=== PATIENT | female | born 1955 ===

== ENCOUNTER 2017-07-16 09:41 | Outpatient (CLI) | payer OTHER | END 2017-07-16 10:27 | disposition home or self-care (01) | LOC: MAMO-SONO 09:41 | DX: N64.4 Mastodynia (principal); N60.39 Fibrosclerosis of unspecified breast; N60.29 Fibroadenosis of unspecified breast; Z12.31 Encounter for screening mammogram for malignant neoplasm of breast ==

== ENCOUNTER 2019-07-22 10:39 | Emergency (ER) | payer OTHER ==
[~2019-07-22] VITALS: Ht 162.6 cm; Wt 49.9 kg
[2019-07-22] MEDS ORDERED: D3 + K2 DOTS 11 EACH PO (10:56)
[2019-07-22] MEDS ORDERED: MULTIPLE VITAM1 EACH PO (10:56)
== END 2019-07-22 13:23 | disposition home or self-care (01) ==
LOC: ER 10:39
DX: R42 Dizziness and giddiness (principal)

== ENCOUNTER 2021-06-20 14:21 | Outpatient (CLI) | payer OTHER ==
[~2021-06-20 14:21] MED LIST: D3 + K2 DOTS 11 EACH PO; MULTIPLE VITAM1 EACH PO
== END 2021-06-20 14:51 | disposition home or self-care (01) ==
LOC: MAMO-SONO 14:21
PROVIDERS: ATTEND Family Medicine Geriatric Medicine
DX: N60.12 Diffuse cystic mastopathy of left breast (principal); N60.11 Diffuse cystic mastopathy of right breast; N64.4 Mastodynia; N60.39 Fibrosclerosis of unspecified breast; N60.29 Fibroadenosis of unspecified breast; N63.0 Unspecified lump in unspecified breast; Z12.11 Encounter for screening for malignant neoplasm of colon

== ENCOUNTER 2021-06-21 08:33 | Outpatient (CLI) | payer OTHER | END 2021-06-21 08:35 | disposition home or self-care (01) | LOC: RAD 08:33 | PROVIDERS: ATTEND Family Medicine Geriatric Medicine | DX: J32.0 Chronic maxillary sinusitis (principal); J01.00 Acute maxillary sinusitis, unspecified; J45.902 Unspecified asthma with status asthmaticus; R05.8 Other specified cough; R07.1 Chest pain on breathing; R51.9 Headache, unspecified; R10.9 Unspecified abdominal pain; N94.89 Other specified conditions associated with female genital organs and menstrual cycle; R10.2 Pelvic and perineal pain; R10.84 Generalized abdominal pain; N20.0 Calculus of kidney; G44.89 Other headache syndrome ==

== ENCOUNTER 2024-01-25 14:44 | Outpatient (CLI) | payer OTHER | END 2024-01-25 15:04 | disposition home or self-care (01) | LOC: MAMO-SONO 14:44 | DX: N64.4 Mastodynia (principal); Z12.31 Encounter for screening mammogram for malignant neoplasm of breast ==

== ENCOUNTER 2024-06-24 08:51 | Outpatient (CLI) | payer OTHER | END 2024-06-24 08:57 | disposition home or self-care (01) | LOC: SONOGRAMA 08:51 | PROVIDERS: ATTEND Family Medicine | DX: R10.9 Unspecified abdominal pain (principal); R10.2 Pelvic and perineal pain ==